=== PATIENT | male | born 1990 | race Caucasian/White ===

== ENCOUNTER 2020-02-01 14:41 | Inpatient (IN) | payer MEDICAID ==
[2020-02-01] VITALS (8 sets, daily range): BP systolic 95–149
[~2020-02-01] VITALS: Ht 182.9 cm; Wt 67.1 kg
--- NOTE | 2020-02-01 14:50 | NUR ---
Patient to ER bed 4 to gown for evaluation. Side rails up. Assumed care
[2020-02-01] MEDS ORDERED: NACL 0.9% 1,000 ML IV ONE (14:52)
[2020-02-01] MEDS ORDERED: INSULIN REGULAR, HUMAN 10 UNITS/0.1 ML INJ IVP ONE (15:00)
--- NOTE | 2020-02-01 15:15 | NUR ---
Patient came to the ER because his family was concerned with his health. The patient has history of depression and developmental delay. Family said that he has been by himself lately and was urinating frequently. Patient fingerstick result was > 600 MD was made aware. Patient is AOx4 and not presenting any signs of acute distress.
--- NOTE | 2020-02-01 15:20 | NUR ---
ER Dr. Dang at bedside examining patient.
[2020-02-01 15:25] LABS: BLOOD, URINE 1+ (NEGATIVE); CLARITY/URINE CLEAR (CLEAR); COLOR,URINE YELLOW (YELLOW); GLUCOSE,URINE 3+ (NEGATIVE); KETONES,URINE 3+ (NEGATIVE); LEUKOCYTE ESTERASE ,URINE NEGATIVE (NEGATIVE); NITRITE, URINE NEGATIVE (NEGATIVE); PROTEIN URINE TRACE (NEGATIVE); UROBILINOGEN,URINE 0.2 (0.2-1.0)
[2020-02-01 15:26] LABS: BASOPHILS % (AUTO) 0.2 % (0.0-2.0); HEMATOCRIT 51.4 % (36-54); HEMOGLOBIN 17.1 g/dL (14.0-18.0); LYMPHOCYTES # (AUTO) 1.6 K/uL (1.0-5.5); LYMPHOCYTES % (AUTO) 8.5 % (20.5-51.5); MEAN CORPUSCULAR HEMOGLOBIN 29 pg (27-31); MEAN CORPUSCULAR HGB CONC 33 % (32-36); MEAN CORPUSCULAR VOLUME 89 fL (79.0-98.0); MONOCYTES # (AUTO) 1.3 K/uL (0.0-1.0); MONOCYTES % (AUTO) 6.9 % (1.7-9.3); NEUTROPHILS # (AUTO) 16.1 K/uL (1.8-7.7); NEUTROPHILS % (AUTO) 84.4 % (40.0-70.0); PLATELET COUNT (AUTO) 400 K/uL (130-430); RED CELL DISTRIBUTION WIDTH 13.1 % (9.0-15.0)
[2020-02-01] MEDS ORDERED: NACL 0.9% 2,000 ML IV ONE (15:30)
[2020-02-01 15:34] LABS: BILIRUBIN,URINE NEGATIVE (NEGATIVE)
[2020-02-01 15:39] LABS: BARBITURATE, URINE NEGATIVE (NEG <=200); BENZODIAZEPINE, URINE NEGATIVE (NEG <=150); CANNABINOID, URINE NEGATIVE (NEG <=50); COCAINE, URINE NEGATIVE (NEG <=150); METHAMPHETAMINES SCREEN,URINE NEGATIVE (NEG <=500); OPIATE, URINE NEGATIVE (NEG <=100); PHENCYCLIDINE SCREEN,URINE NEGATIVE (NEG <=25); UR TRICYCLIC ANTIDEPRESSANTS NEGATIVE (NEG <=300); URINE AMPHETAMINE NEGATIVE (NEG <=500); URINE METHADONE NEGATIVE (NEG <=200); URINE OXYCODONE SCREEN NEGATIVE (NEG <=100); URINE PROPOXYPHENE SCREEN NEGATIVE (NEG <=300)
[2020-02-01 15:39] LABS: INR 1.1 (0.80-1.20)
[2020-02-01 15:40] LABS: BACTERIA,URINE FEW /HPF (None Seen); MUCUS,URINE None Seen /LPF (None Seen); RBC,URINE 0-3 /HPF (0-3); WBC,URINE NONE SEEN /HPF (0-3)
[2020-02-01 15:53] LABS: ANION GAP 31 (5-15); CALCIUM 9.8 mg/dL (8.4-11.0); CHLORIDE 94 mmol/L (98-107); CREATININE 2.26 mg/dL (0.55-1.30); POTASSIUM 4.6 mmol/L (3.5-5.1); SODIUM SERUM 133 mmol/L (136-145); UREA NITROGEN, BLOOD 44 mg/dL (8-21)
[2020-02-01 16:03] LABS: CHOLESTEROL 238 mg/dL (<200); HDL CHOLESTEROL 54 mg/dL (>45); LDL CHOLESTEROL 126 mg/dL (<100); TRIGLYCERIDES 273 mg/dL (30-150)
[2020-02-01 16:04] LABS: ALANINE AMINOTRANSFERASE 17 U/L (12-78); ALBUMIN 4.2 g/dL (3.4-4.8); AMYLASE 174 U/L (0-100); ASPARTATE AMINOTRANSFERASE 13 U/L (10-37); FREE T4 (FREE THYROXINE) 0.9 ng/dl (0.8-1.5); LIPASE 1087 U/L (73-393); THYROID STIMULATING HORMONE 0.97 uIu/mL (0.36-3.74); TOTAL BILIRUBIN 1.2 mg/dL (0.0-1.0)
[2020-02-01 16:09] LABS: GFR AFRICAN AMERICAN 45 mL/min (>90); GLUCOSE 660 mg/dL (70-99)
[2020-02-01 16:14] LABS: ALCOHOL, BLOOD < 3 mg/dL (<10)
[2020-02-01 16:15] LABS: ACETAMINOPHEN < 1 ug/mL (1-30)
[2020-02-01] MEDS ORDERED: cefTRIAXone 1 GM IVPB PREMIX 50 ML IV ONE (16:15)
[2020-02-01] MEDS ORDERED: NACL 0.9% 1,000 ML IV SCH (16:44)
[2020-02-01] MEDS ORDERED: INSULIN REGULAR, HUMAN 100 UNITS in NS 99 ML IV PRN ×4 (16:45→18:34)
[2020-02-01] MEDS ORDERED: DEXTROSE 50% JECT 50 ML DISP.SYRIN IVP PRN ×3 (16:45→18:45)
[2020-02-01 17:04] LABS: PHOSPHORUS 2.9 mg/dL (2.7-4.5)
--- NOTE | 2020-02-01 17:20 | NUR ---
Patient does not have prescribed medication, per patient.
[2020-02-01 17:26] LABS: ACETONE, SERUM MODERATE (NEGATIVE)
--- NOTE | 2020-02-01 17:30 | NUR ---
Patient will be admitted to care of Flora CASTELAN. Admitted to ICU unit. Will go to room 5. Belongings list completed. Complete and up to date summary report printed. SBAR report to be given at bedside with opportunity for questions.
--- NOTE | 2020-02-01 17:32 | NUR ---
CONSULTATION PAGED PRIORITY: ROUTINE REASON FOR CONSULTATION:DKA, ACUTE PANCREATITIS WAS CONSULT CALLED:Y PERSON WHO WAS NOTIFIED:CHANDA HOLLINGSWORTH CONSULTING PHYSICIAN:AIXA PINEDO (CHANDA HOLLINGSWORTH NURSE MIDWIFE/CLINICAL INSTRUCTOR) PRODUCTION TRUCK DRIVER SPECIALTY:NEPHRO PRODUCTION TRUCK DRIVER PHONE NUMBER:[phone]
--- NOTE | 2020-02-01 17:37 | NUR ---
CONSULTATION PAGED PRIORITY: ROUTINE REASON FOR CONSULTATION:DKA, PANCREATITIS WAS CONSULT CALLED:Y PERSON WHO WAS NOTIFIED:NETO CONSULTING PHYSICIAN:TAVO MUELLER CASH MANAGER SPECIALTY:GI CASH MANAGER PHONE NUMBER:[phone]
--- NOTE | 2020-02-01 17:39 | NUR ---
CONSULTATION PAGED PRIORITY: ROUTINE REASON FOR CONSULTATION:DKA, PANCREATITIS WAS CONSULT CALLED:Y PERSON WHO WAS NOTIFIED:TYE MALIK CONSULTING PHYSICIAN:KEMI ANDERS (SACHI STROUD PARALEGAL SECRETARY) RETAIL CUSTOMER SERVICE REPRESENTATIVE SPECIALTY:ENDO RETAIL CUSTOMER SERVICE REPRESENTATIVE PHONE NUMBER:[phone]
--- NOTE | 2020-02-01 17:45 | NUR ---
Received pt from ER to ICU bed 5. Pt alert and ablet o answer questions but slow. ST on monitor rate 104. BP stable. RR 20min sats 100% without oxygen. IV 20g to left AC . NS infusing wide open and bag finished. No skin issues. Pt placed into a gown and oriented to room. Call rodriguez in reach.
--- NOTE | 2020-02-01 17:55 | NUR ---
Dr. Powell called for information and will call back.
--- NOTE | 2020-02-01 18:00 | NUR ---
Accucheck done and reads HI. Lab called for blood sugar.
--- NOTE | 2020-02-01 18:00 | NUR ---
Dr. Esteves called for information and will call back.
--- NOTE | 2020-02-01 18:12 | NUR ---
Lab here to draw lab.
[2020-02-01] MEDS ORDERED: KCL 20 mEq in 0.45% NS 1000 mL 1,000 ML IV SCH (18:45)
--- NOTE | 2020-02-01 18:50 | NUR ---
Spoke with Dr. Esteves on the phone and update given. Orders left.
--- NOTE | 2020-02-01 19:00 | NUR ---
Spoke with Dr. Powell and update given. Orders left.
--- NOTE | 2020-02-01 19:10 | NUR ---
Insulin drip mixed and witnessed with Kasi CASTELAN and started at 10unit/hr on the pump witnessed by Kasi CASTELAN. NS infusing at 150cc/hr.
[2020-02-01] MEDS ORDERED: KCL 20 mEq in 0.45% NS 1000 mL 1,000 ML IV ONE (19:15)
--- NOTE | 2020-02-01 19:20 | NUR ---
Report given to sara CASTELAN to assume care of the pt. Glucose on blood draw 446. Dr. Esteves said she would call later tonight for the results as well as for the lab results. Addendum: 02/05/20 at 0739 by Noemi Stephenson RN Addendum; Reported to sara CASTELAN that admission assessment data was not complete and that the admission data needed to be done as well as influenza screening. Pt is unable to give information and I called his parents and there was no answer. His parents did not call into the ICU so I coould get any information either. Admission physical assessment was completed.
--- NOTE | 2020-02-01 19:30 | NUR ---
Opening Note Patient received via SBAR with normal vitals, elevated blood sugar, on an in insulin drip and fluids, supine in bed, with HOB in upright position, lowered down to the floor in the locked position, with the call light within reach. Will continue to monitor.
--- NOTE | 2020-02-01 19:40 | NUR ---
Admission List and Property Patient's family is not able to enter the hospital due to the Coronavirus quarantine, and patient was admitted in the previous shift. Unable to fill out admission forms without family present. Will attempt to follow up with day shift.
[2020-02-01 19:51] LABS: CALCIUM 8.8 mg/dL (8.4-11.0); CREATININE 1.77 mg/dL (0.55-1.30)
[2020-02-01 20:09] LABS: POTASSIUM 5.8 mmol/L (3.5-5.1)
[2020-02-01] MEDS: PANTOPRAZOLE SODIUM 40 MG/VIAL (PROTONIX) IVP SCH (21:53)
[2020-02-01] MEDS ORDERED: KCL 20 mEq in D5/0.45NS 1000mL 1,000 ML IV SCH (22:00)
[2020-02-01] MEDS ORDERED: KCL 20 mEq in D5/0.45NS 1000mL 1,000 ML IV ONE (22:17)
--- NOTE | 2020-02-01 22:26 | NUR ---
INSULIN DRIP I witnessed Bill decrease insulin drip to 6 units/HR.
--- NOTE | 2020-02-01 23:31 | NUR ---
PAGED DR. CARLSON (SPEEDBOAT DRIVER FOR DR. BROWN) FOR CRITICAL LAB VALUES DIALED: [phone] ( WAS REDIRECTED FROM DR. BROWN'S EXCHANGE) SPOKE TO: FAY
[2020-02-02] VITALS (19 sets, daily range): BP systolic 95–157
[2020-02-02] MEDS: D5/0.45 NS 1,000 ML IV SCH ×2 (00:02→05:56)
[2020-02-02 00:11] LABS: CALCIUM 8.7 mg/dL (8.4-11.0); CREATININE 1.43 mg/dL (0.55-1.30); POTASSIUM 3.6 mmol/L (3.5-5.1)
[2020-02-02 03:25] LABS: BASOPHILS % (AUTO) 0.3 % (0.0-2.0); EOSINOPHILS % (AUTO) 0.1 % (0.0-4.0); HEMATOCRIT 43.9 % (36-54); HEMOGLOBIN 14.9 g/dL (14.0-18.0); LYMPHOCYTES # (AUTO) 1.8 K/uL (1.0-5.5); LYMPHOCYTES % (AUTO) 12.3 % (20.5-51.5); MEAN CORPUSCULAR HEMOGLOBIN 29 pg (27-31); MEAN CORPUSCULAR HGB CONC 34 % (32-36); MEAN CORPUSCULAR VOLUME 85 fL (79.0-98.0); MONOCYTES # (AUTO) 1.6 K/uL (0.0-1.0); MONOCYTES % (AUTO) 10.6 % (1.7-9.3); NEUTROPHILS # (AUTO) 11.5 K/uL (1.8-7.7); NEUTROPHILS % (AUTO) 76.7 % (40.0-70.0); PLATELET COUNT (AUTO) 291 K/uL (130-430); RED BLOOD CELL COUNT(AUTO) 5.14 MIL/uL (4.2-6.2); RED CELL DISTRIBUTION WIDTH 12.9 % (9.0-15.0)
[2020-02-02 03:50] LABS: ALBUMIN 3.4 g/dL (3.4-4.8); CREATININE 1.38 mg/dL (0.55-1.30)
[2020-02-02] MEDS: KCL 20 mEq in 100 mL (PREMIX) 100 ML IV SCH ×2 (05:06→06:00)
--- NOTE | 2020-02-02 07:00 | NUR ---
Nutrition Update Alo Scale 16 noted. Pt admitted for DKA, Pancreatitis Diet: Clear liquid BMI: 20.3 kg/m2 RD to follow per nutrition care standards.
--- NOTE | 2020-02-02 07:37 | NUR ---
Closing Note Patient reviewed with incoming day shift RN via SBAR. Vitals are within normal limits. No signs of distress or pain. Patient is supine in bed, with the HOB in upright position, with the call light within reach, bed in lowest setting and locked.
[2020-02-02 07:42] LABS: CALCIUM 9.3 mg/dL (8.4-11.0); CREATININE 1.36 mg/dL (0.55-1.30); POTASSIUM 3.5 mmol/L (3.5-5.1)
[2020-02-02] MEDS: PANTOPRAZOLE SODIUM 40 MG/VIAL (PROTONIX) IVP SCH ×2 (09:25→21:41)
[2020-02-02] MEDS: cefTRIAXone 1 GM in D5W 50 ML IV SCH (09:25)
[2020-02-02] MEDS ORDERED: INSULIN GLARGINE 100 UNITS/ML 10 ML VIAL SUBCUT ONE (09:30)
[2020-02-02] MEDS ORDERED: KCL 20 mEq in D5/0.45NS 1000mL 1,000 ML IV SCH ×2 (09:30→19:00)
--- NOTE | 2020-02-02 09:50 | NUR ---
IN AM RECEIVED THIS PT A/OX4, PT WAS ON INSULIN DRIP. SB 87 @7AM. INSULINE DRIP WAS STOPPED AND WAS CALLED. PT WAS ORDERED TO STOP INSULINE DRIP AND CHANGED TO LATUS 20UNITS STAT NOW, AQ CHECK4 AND COVER WITH REGULAR INSULIN IN LOW DOSE. PT WAS PUT ON NPO IN AM FOR US OF ABO WHICH WAS DONE @0900. PT'S VS STABLE. DENIES PAIN AND DIZZINESS.
[2020-02-02] MEDS ORDERED: DEXTROSE 50% JECT 50 ML DISP.SYRIN IVP PRN ×2 (10:45→11:15)
--- NOTE | 2020-02-02 10:46 | NUR ---
SS NOTES: DECK MOLDER was referred by CM to see patient for DCP/ICU. Demographic information verified (NOK, PTN: Zuleyka Agosto, mom, unknown phone#). DECK MOLDER met with patient at bedside, stated reason for visit. Pt is alert and oriented x4, and cooperative during the encounter. Pt appeared to be disheveled, with depressed mood, soft speech, average eye contact and flat affect. Pt is a 29 y/o single male who came in via ED for nausea and vomiting. Pt lives at home with parents and is independent with all ADL's. Pt is currently and unemployed and does not have any means of income. Pt denies any history of substance abuse/use and denies any history of mental health. Pt states he does not have a PCP and has not seen one "in a while". Pt appears to not really know his diagnosis, but stated the doctors and nurses are transparent with him in terms of his care and the reason of his admission. No further SS needs identified at this time, but SS will remain available for support. DECK MOLDER provided patient with community clinic list and his [employer] printout which has his PCP group and phone number listed.
[2020-02-02 11:28] LABS: CALCIUM 8.9 mg/dL (8.4-11.0); CREATININE 1.44 mg/dL (0.55-1.30); POTASSIUM 3.6 mmol/L (3.5-5.1)
[2020-02-02] MEDS ORDERED: INSULIN LISPRO SLIDING SCALE 100 UNITS/ML VIAL (humaLOG) SUBCUT PRN (11:30)
[2020-02-02] MEDS: INSULIN LISPRO SLIDING SCALE 100 UNITS/ML VIAL (humaLOG) SUBCUT PRN ×3 (11:48→21:53)
--- NOTE | 2020-02-02 12:00 | NUR ---
Dietitian Recommendations *Continue clear liquid diet per MD. *Advance diet when medically appropriate. ([facility] diet) Please see Nutritional Assessment for details. STEVIE, RODERICK
--- NOTE | 2020-02-02 13:00 | NUR ---
LUNCH WAS DELIVERED TO PT. PT ATE 50%. BUT PT TOOK MORE JUICE TO DRINK.
--- NOTE | 2020-02-02 17:10 | NUR ---
PT WS DOWNGRADED TO M/S. PT ABLE TO AMBULATE ON FLOOR IN STEADY GAIT. PT GOT ROOM 120A. REPORT WAS CALLED TO FLOOR RN. PT WAS SENT TO FLOOR IN W/C IN STABLE CONDITION.
--- NOTE | 2020-02-02 17:20 | NUR ---
continuation of care Patient is awake and alert sitting up in bed, educated special population paraprofessional light for assistance. call light is with patient. Report was endorsed by ICU nurse. Patient shows no signs of any distress, breathing is equal and on labored. Patient has no complaints at this time. will continue to monitor.
--- NOTE | 2020-02-02 17:49 | NUR ---
ACCU CHECK Patient is awake and alert sitting up in bed. patients Accu check done, coverage given per order. paging Dr. Rivera for elevated blood sugar. Patient used urinal. educated wellness consultant light for assistance. call light is with patient. patient has no other needs at this time. close to nurses station.
--- NOTE | 2020-02-02 17:55 | NUR ---
Dr. Rivera spoke with made aware of elevated BS, orders were received.
[2020-02-02] MEDS: POTASSIUM CHLORIDE 20 MEQ in 0.45% NACL 1,000 ML IV SCH (19:08)
--- NOTE | 2020-02-02 19:12 | NUR ---
rn closing note Patient is awake and alert no signs of any distress. Patient has all safety precautions in place. Patient has call light with him educated to use for assistance. no other needs at this time.
--- NOTE | 2020-02-02 19:50 | NUR ---
OPENING NOTES Patient resting in bed, awake, breathing evenly and nonlabored on room air. Patient has an IV on the left AC 22g, patent and benign, IVF running, patient tolerating it well. Educated patient on fall/safety precautions, call light system, patient stated understanding. Bed is locked, armed and at lowest position, will continue to monitor.
--- NOTE | 2020-02-02 21:53 | NUR ---
due medications given, BS checked, coverage needed, patient tolerated it well, fall/safety precautions.
--- NOTE | 2020-02-03 01:00 | NUR ---
RESTING PT RESTING IN BED. BREATHING EVEN AND UNLABORED TO ROOM AIR. NO S/S OF ACUTE DISTRESS. IVF INFUSING ORDERED RATE. SAFETY AND FALL PRECAUTION IN PLACED. WILL MONITOR. Addendum: 02/04/20 at 0343 by Maddy Mendiola RN PLEASE DISREGARD WRONG DATE.
[2020-02-03 01:11] VITALS: BP_SYST 137
[2020-02-03] MEDS: POTASSIUM CHLORIDE 20 MEQ in 0.45% NACL 1,000 ML IV SCH ×2 (04:34→15:33)
--- NOTE | 2020-02-03 04:34 | NUR ---
IVF replaced, patient is tolerating it well. No s/s of distress at this time, no other needs at this time, fall/safety precautions.
[2020-02-03] MEDS: INSULIN Lispro 100 UNITS/ML VIAL (humaLOG) SUBCUT SCH ×3 (06:33→17:00)
--- NOTE | 2020-02-03 06:33 | NUR ---
CLOSING NOTES Patient resting in bed, awake, breathing evenly and nonlabored on room air. IVF running, patient tolerating it well. BS checked, coverage needed. Patient denies any pain. No s/s of distress at this time, no other needs at this time. Needs met throughout the shift, will endorse care to morning shift RN.
[2020-02-03] MEDS: INSULIN LISPRO SLIDING SCALE 100 UNITS/ML VIAL (humaLOG) SUBCUT PRN ×4 (06:34→21:11)
[2020-02-03 06:47] LABS: BASOPHILS % (AUTO) 0.3 % (0.0-2.0); EOSINOPHILS # (AUTO) 0.1 K/uL (0.0-0.4); EOSINOPHILS % (AUTO) 0.8 % (0.0-4.0); HEMATOCRIT 39.6 % (36-54); HEMOGLOBIN 13.6 g/dL (14.0-18.0); LYMPHOCYTES # (AUTO) 2.1 K/uL (1.0-5.5); LYMPHOCYTES % (AUTO) 24.9 % (20.5-51.5); MEAN CORPUSCULAR HEMOGLOBIN 30 pg (27-31); MEAN CORPUSCULAR HGB CONC 34 % (32-36); MEAN CORPUSCULAR VOLUME 86 fL (79.0-98.0); MONOCYTES # (AUTO) 0.7 K/uL (0.0-1.0); MONOCYTES % (AUTO) 8.3 % (1.7-9.3); NEUTROPHILS # (AUTO) 5.6 K/uL (1.8-7.7); NEUTROPHILS % (AUTO) 65.7 % (40.0-70.0); PLATELET COUNT (AUTO) 200 K/uL (130-430); RED CELL DISTRIBUTION WIDTH 12.9 % (9.0-15.0); WHITE BLOOD COUNT (AUTO) 8.6 K/uL (4.8-10.8)
--- NOTE | 2020-02-03 07:10 | NUR ---
opening note received bedside SBAR from night RN, patient in bed, respirations even, non labored, bed in low and locked position, call light within reach
[2020-02-03 08:00] VITALS: BP_SYST 127
[2020-02-03] MEDS: PANTOPRAZOLE SODIUM 40 MG/VIAL (PROTONIX) IVP SCH ×2 (08:35→21:11)
[2020-02-03] MEDS: cefTRIAXone 1 GM in D5W 50 ML IV SCH (08:40)
[2020-02-03 08:47] LABS: ALBUMIN 3.1 g/dL (3.4-4.8); BILIRUBIN,DIRECT 0.3 mg/dL (0.0-0.3); TOTAL BILIRUBIN 1.8 mg/dL (0.0-1.0)
[2020-02-03] MEDS ORDERED: INSULIN GLARGINE 100 UNITS/ML 10 ML VIAL SUBCUT SCH ×2 (09:00)
--- NOTE | 2020-02-03 09:30 | NUR ---
nurse note Patient in bed, alert, bed in low and locked position, call light within reach
--- NOTE | 2020-02-03 11:40 | NUR ---
blood sugar blood sugar 508, initiated protocol, patient alert, oriented, respirations even non labored, spoke with Dr. Rivera, regarding blood sugar, new orders given.
[2020-02-03 12:25] VITALS: BP_SYST 131
[2020-02-03] MEDS ORDERED: INSULIN GLARGINE 100 UNITS/ML 10 ML VIAL SUBCUT ONE (12:30)
[2020-02-03] MEDS ORDERED: INSULIN Lispro 100 UNITS/ML VIAL (humaLOG) SUBCUT ONE (12:30)
--- NOTE | 2020-02-03 13:00 | NUR ---
nurse note patient in bed, eyes closed, respirations even, non labored, bed in low and locked position, bed alarm on, call light within reach
--- NOTE | 2020-02-03 15:00 | NUR ---
physician rounds Dr. Lugo bedside examining patient
[2020-02-03 16:34] VITALS: BP_SYST 125
--- NOTE | 2020-02-03 19:10 | NUR ---
CLOSING NOTE BEDSIDE SBAR GIVEN TO NIGHT RN, PATIENT IN BED EYES CLOSED, RESPIRATIONS EVEN, NON LABORED, BED IN LOW AND LOCKED POSITION, CALL LIGHT WITHIN REACH, ENDORSED CARE TO NIGHT RN
--- NOTE | 2020-02-03 19:30 | NUR ---
OPENING NOTES Received care of patient and SBAR report. Patient resting in bed, awake, breathing evenly and nonlabored on room air. Patient has an IV on the left AC 22g, patent and benign, IVF running, patient tolerating it well. Educated patient on fall/safety precautions, call light system, patient verbalized understanding. Bed is locked, alarmed and at the lowest position. Will continue to monitor throughout shift.
[2020-02-03 20:00] VITALS: BP_SYST 133
--- NOTE | 2020-02-03 21:11 | NUR ---
ACCU-CHECK BLOOD SUGAR OF 236. 4 UNITS OF HUMALOG INSULIN ADMINISTERED PER SLIDING SCALE.
--- NOTE | 2020-02-03 23:05 | NUR ---
AMBULATED TO RESTROOM WITH NURSE ASSIST. PT NOTED TO HAVE STEADY GAIT AT THIS TIME. PT RETURNED TO BED SAFELY. PT TOLERATED ACTIVITY WELL. SAFETY PRECAUTIONS ARE IN PLACED. CALL LIGHT WITHIN REACH. WILL MONITOR.
[2020-02-04 00:35] VITALS: BP_SYST 127
--- NOTE | 2020-02-04 01:00 | NUR ---
RESTING PT RESTING IN BED. BREATHING EVEN AND UNLABORED TO ROOM AIR. NO S/S OF ACUTE DISTRESS. IVF INFUSING ORDERED RATE. SAFETY AND FALL PRECAUTION IN PLACED. WILL MONITOR.
--- NOTE | 2020-02-04 03:44 | NUR ---
SLEEPING PT RESTING IN BED. BREATHING EVEN AND UNLABORED TO ROOM AIR. NO S/S OF ACUTE DISTRESS. IVF INFUSING ORDERED RATE. SAFETY AND FALL PRECAUTION IN PLACED. WILL MONITOR.
[2020-02-04] MEDS: INSULIN Lispro 100 UNITS/ML VIAL (humaLOG) SUBCUT SCH ×3 (06:13→16:42)
--- NOTE | 2020-02-04 06:13 | NUR ---
ACCUCHECK BLOOD SUGAR OF 121, NO INSULIN COVERAGE INDICATED PER SLIDING SCALE. 5 UNITS OF SCHEDULED HUMALOG ADMINISTERED ORDERED. SAFETY MAINTAINED. WILL MONITOR.
[2020-02-04] MEDS: POTASSIUM CHLORIDE 20 MEQ in 0.45% NACL 1,000 ML IV SCH (06:14)
[2020-02-04 06:29] LABS: CALCIUM 8.8 mg/dL (8.4-11.0); CREATININE 0.81 mg/dL (0.55-1.30)
--- NOTE | 2020-02-04 06:45 | NUR ---
CLOSING NOTE PATIENT IN BED RESTING. EYES ARE CLOSED, RESPIRATIONS EVEN AND NON LABORED. IVF INFUSING ORDERED. NO S/S OF ACUTE DISTRESS. SAFETY PRECAUTIONS MAINTAINED THROUGHOUT SHIFT. BED IN LOW AND LOCKED POSITION, CALL LIGHT WITHIN REACH. WILL ENDORSE TO DAY SHIFT RN.
[2020-02-04 07:49] VITALS: BP_SYST 133
--- NOTE | 2020-02-04 08:00 | NUR ---
Note Pt sitting up in bed to eat his breakfast. No SOB/resp distress or pain/discomfort noted at this time. Pt's left AC IV intact and patent infusing IVF's well. No needs noted at this time. Call light within reach.
[2020-02-04 08:42] LABS: POTASSIUM 2.7 mmol/L (3.5-5.1)
[2020-02-04] MEDS ORDERED: INSULIN GLARGINE 100 UNITS/ML 10 ML VIAL SUBCUT SCH (09:00)
[2020-02-04] MEDS: cefTRIAXone 1 GM in D5W 50 ML IV SCH (09:27)
[2020-02-04] MEDS: PANTOPRAZOLE SODIUM 40 MG/VIAL (PROTONIX) IVP SCH ×2 (09:27→20:20)
[2020-02-04] MEDS ORDERED: POTASSIUM CHLORIDE 20 MEQ TAB.PRT.SR PO ONE (10:15)
--- NOTE | 2020-02-04 10:30 | NUR ---
Note Pt's K=2.7, Dr Kumar was called at 0850am. Dr Kumar called back at 1010am and orders were received. Orders were carried out at this time. Pt denies any needs at this time. Call light within reach.
[2020-02-04] MEDS: INSULIN LISPRO SLIDING SCALE 100 UNITS/ML VIAL (humaLOG) SUBCUT PRN ×3 (11:59→20:23)
--- NOTE | 2020-02-04 12:40 | NUR ---
Nutrition F/U RD reviewed pt's current EMR including diet Hx, physician notes, nursing notes, pertinent labs/meds/procedures, care trends and care activity. Admit Dx: DKA, Pancreatitis Current Diet Order: CCHO diet x 1day Subjective information: Pt seen walking the hallway w/ physical therapist. No family at bedside. Pt reported of excellent appetite. Pt w/ developmental delay/mild mental challenge per EMR. US Abd: unremarkable. BG lab values noted. RD handed printed out materials for MNT for family members in Venezuelan and Italian and left it w/ RN. Alo scale: 21, No pressure injury/skin issues noted. Labs: 02/03 Na 138 WNL, K 2.7L, BG 118H, POC BG 389H, BUN 15 WNL, CRE 0.81WNL Current PO intake: Good 88% average of 2 meals recorded. Estimated Energy Expenditure (kcals/day) 5808-5118 kcal/day (30-35 kcal/kg CBW for maintenance) Estimated Protein Required (g/day) 68gm/day (1gm/kg CBW for ION/elevated Renal labs) Estimated Fluid Required (l/day) 2L/day (30ml/kg CBW for maintenance) Problem/Etiology/Signs/Symptoms Altered nutrition-related labs r/t renal dysfunction AEB elevated BUN and CRE lab values. (*improved) Inadequate energy intake r/t diet interruptions AEB NPO since admission and negligible PO intake w/ therapeutic diet d/t procedure. (*no longer applicable) Altered nutrition-related labs r/t endocrine dysfunction AEB elevated BG and POC BG lab values. (*new 02/04/2020) Expected Outcomes/Goals Monitor appetite and PO intake w/ goal of pt meeting at least 75% of estimated nutritional needs, labs trending WNL, normal GI function, skin integrity/wt maintenance. Dietitian Recommendations *Continue [facility] diet. Follow Up High Risk: F/U in 2-3days
[2020-02-04 12:41] VITALS: BP_SYST 150
--- NOTE | 2020-02-04 12:48 | NUR ---
Dietitian Recommendations *Continue [facility] diet. Please see Nutrition F/U note for details. STEVIE, RODERICK
--- NOTE | 2020-02-04 14:00 | NUR ---
Note Pt sat up in bed and ate his lunch. No needs noted at this time. Call light within reach.
[2020-02-04 16:20] VITALS: BP_SYST 141
--- NOTE | 2020-02-04 17:50 | NUR ---
Note Pt sitting up in bed eating his dinner. IV in left AC intact and patent. No SOB/resp distress or pain/discomfort noted at this time. Pt states he feels "well, better than yesterday". No needs noted at this time. Call light within reach.
--- NOTE | 2020-02-04 18:50 | NUR ---
Note Pt was checked on q1' and PRN all shift for needs and care. Call light within reach. Bed in low position all shift. Pt maintained with safety precautions all shift. Pt next to nurses station for close observation for needs and care.
--- NOTE | 2020-02-04 19:10 | NUR ---
OPENING NOTES. PATIENT AWAKE, RESTING IN BED NO SIGNS OF RESPIRATORY DISTRESS NOTED. DENIES PAIN AND DISCOMFORT AT THIS TIME. IV SITE, PATENCY NOTED. CALL LIGHT WITHIN REACH. PATIENT WAS EDUCATED TO USE CALL LIGHT WHEN ASSISTANCE IS NEEDED. PATIENT VERBALIZED UNDERSTANDING. BED LOCKED AND IN LOWEST POSITION. BED ALARM ON. SAFETY PRECAUTIONS IN PLACE. WILL CONTINUE TO MONITOR PATIENT.
[2020-02-04] MEDS ORDERED: POTASSIUM CHLORIDE 20 MEQ/PKT PACKET PO ONE (19:30)
[2020-02-04 20:00] VITALS: BP_SYST 127
--- NOTE | 2020-02-04 20:20 | NUR ---
MED PASS DUE MEDICATION GIVEN AT THIS TIME. PATIENT WAS EDUCATED ON MEDICATION THAT WAS TAKEN, PATIENT VERBALIZED UNDERSTANDING. CALL LIGHT WITHIN REACH. SAFETY PRECAUTIONS IN PLACE. WILL CONTINUE TO MONITOR PATIENT.
[2020-02-04] MEDS ORDERED: POTASSIUM CHLORIDE 20 MEQ TAB.PRT.SR PO SCH (21:00)
--- NOTE | 2020-02-04 23:30 | NUR ---
RN ROUNDS PATIENT ASLEEP AT THIS TIME. NO SIGNS OF RESPIRATORY DISTRESS AND DISCOMFORT NOTED. BREATHING EVEN AND UNLABORED. CALL LIGHT WITH IN REACH. SAFETY PRECAUTIONS IN PLACE. WILL CONTINUE TO MONITOR PATIENT.
[2020-02-05 00:18] VITALS: BP_SYST 124
[2020-02-05] MEDS: INSULIN Lispro 100 UNITS/ML VIAL (humaLOG) SUBCUT SCH ×3 (06:06→17:36)
[2020-02-05 06:31] LABS: CALCIUM 9.1 mg/dL (8.4-11.0); CREATININE 0.77 mg/dL (0.55-1.30); POTASSIUM 3.6 mmol/L (3.5-5.1)
--- NOTE | 2020-02-05 06:34 | NUR ---
CLOSING NOTES/BS 207 PATIENT ASLEEP AT THIS TIME. NO SIGNS OF RESPIRATORY DISTRESS AND DISCOMFORT NOTED. BREATHING EVEN AND UNLABORED. IV SITE, PATENCY NOTED. BS CHECKED,AI=524, COVERAGE GIVEN ORDERED. CALL LIGHT WITHIN REACH. BED LOCKED AND IN LOWEST POSITION. BED ALARM ON. ALL NEEDS MET THROUGHOUT THE SHIFT. WILL CONTINUE TO MONITOR UNTIL ENDORSE TO ONCOMING SHIFT NURSE FOR CONTINUITY OF CARE.
[2020-02-05 08:23] VITALS: BP_SYST 133
[2020-02-05] MEDS: INSULIN GLARGINE 100 UNITS/ML 10 ML VIAL SUBCUT SCH ×2 (09:00→09:18)
--- NOTE | 2020-02-05 09:00 | NUR ---
pt refused to eat breakfast, stated he does not want to have abdominal pain.
[2020-02-05] MEDS: cefTRIAXone 1 GM in D5W 50 ML IV SCH (09:01)
[2020-02-05] MEDS: PANTOPRAZOLE SODIUM 40 MG/VIAL (PROTONIX) IVP SCH ×2 (09:02→20:13)
[2020-02-05] MEDS ORDERED: INSULIN GLARGINE 100 UNITS/ML 10 ML VIAL SUBCUT ONE (09:30)
[2020-02-05 10:26] LABS: HEMOGLOBIN A1C 9.4 % (4.8-5.6)
[2020-02-05 12:31] VITALS: BP_SYST 131
--- NOTE | 2020-02-05 16:09 | NUR ---
pt resting at this time. no s/s of pain.
[2020-02-05 16:45] VITALS: BP_SYST 138
--- NOTE | 2020-02-05 18:27 | NUR ---
SPOKE WITH PT'S FATHER RE PT STATUS.
--- NOTE | 2020-02-05 18:56 | NUR ---
PT'S FAMILY DIABETIC TEACHING, INSULING INJECTION AND BLOOD SUGAR CHECK. SPOKE WITH PT'S BROTHER , DELPHINE TEL NO [phone]. TOLD HIM ABT DR DUTTON;S ORDER. HE SAID HE WILL CALL THE NURSE IN AM TO GIVE SCHEDULE WHEN THEY CAN COME FOR THE TEACHING, THEY ARE HOPING THAT THEY CAN COME FOR THE TEACHING AND PAGEANT DIRECTOR PT FOR DC.
--- NOTE | 2020-02-05 19:10 | NUR ---
OPENING NOTES PATIENT AWAKE, RESTING IN BED AND WATCHING TV. NO SIGNS OF RESPIRATORY DISTRESS NOTED. DENIES PAIN AND DISCOMFORT AT THIS TIME. IV SITE, PATENCY NOTED. CALL LIGHT WITHIN REACH. PATIENT WAS EDUCATED TO USE CALL LIGHT WHEN ASSISTANCE IS NEEDED. PATIENT VERBALIZED UNDERSTANDING. BED LOCKED AND IN LOWEST POSITION. BED ALARM ON. SAFETY PRECAUTIONS IN PLACE. WILL CONTINUE TO MONITOR PATIENT.
--- NOTE | 2020-02-05 19:47 | NUR ---
ENDORSED TO NIGHT RN VALERIA: PT ON STABLE CONDITION, ANNELISE SHAW MADE AWARE OF THE ORDER FOR FAMILY TEACHING ON INSULIN INJECTION AND BLOOD SUGAR CHECKS IN AM. FAMILY WILL CALL MORNING NURSE FOR SCHEDULE.
[2020-02-05 20:00] VITALS: BP_SYST 118
--- NOTE | 2020-02-05 20:13 | NUR ---
MED PASS/BS 140 DUE MEDICATION GIVEN AT THIS TIME. PATIENT WAS EDUCATED ON MEDICATION THAT WAS TAKEN, PATIENT VERBALIZED UNDERSTANDING. JS=500, NO COVERAGE NEEDED AT THIS TIME. CALL LIGHT WITHIN REACH. SAFETY PRECAUTIONS IN PLACE. WILL CONTINUE TO MONITOR PATIENT.
--- NOTE | 2020-02-05 22:45 | NUR ---
RN ROUNDS PATIENT AWAKE AND RESTING IN BED AT THIS TIME. NO SIGNS OF RESPIRATORY DISTRESS AND DISCOMFORT NOTED. BREATHING EVEN AND UNLABORED. CALL LIGHT WITH IN REACH. SAFETY PRECAUTIONS IN PLACE. WILL CONTINUE TO MONITOR PATIENT.
[2020-02-06 00:44] VITALS: BP_SYST 124
[2020-02-06] MEDS: INSULIN Lispro 100 UNITS/ML VIAL (humaLOG) SUBCUT SCH ×3 (06:05→16:32)
--- NOTE | 2020-02-06 06:19 | NUR ---
CLOSING NOTES /BS 132 PATIENT AWAKE. NO SIGNS OF RESPIRATORY DISTRESS AND DISCOMFORT NOTED. BREATHING EVEN AND UNLABORED. IV SITE, PATENCY NOTED. BS CHECKED=BS 132. MD ORDERED SCHEDULED 5UNITS OF HUMALOG. PATIENT WAS EDUCATED ON PURPOSE, SIDE EFFECT AND BENEFITS OF INSULIN, PATIENT VERBALIZED UNDERSTANDING. CALL LIGHT WITHIN REACH. BED LOCKED AND IN LOWEST POSITION. BED ALARM ON. ALL NEEDS MET THROUGHOUT THE SHIFT. WILL CONTINUE TO MONITOR UNTIL ENDORSE TO ONCOMING SHIFT NURSE FOR CONTINUITY OF CARE.
[2020-02-06] MEDS ORDERED: INSULIN GLARGINE 100 UNITS/ML 10 ML VIAL SUBCUT SCH (09:00)
[2020-02-06] MEDS: INSULIN GLARGINE 100 UNITS/ML 10 ML VIAL SUBCUT SCH (10:51)
[2020-02-06] MEDS: INSULIN LISPRO SLIDING SCALE 100 UNITS/ML VIAL (humaLOG) SUBCUT PRN ×2 (10:54→16:33)
--- NOTE | 2020-02-06 11:00 | NUR ---
FATHER OF PATIENT TEACHING ON BLOOD GLUCOSE CHECK BEFORE MEALS AND SLIDING SCALE HUMALOG BEFORE MEAL WELL STANDING ORDERS FOR HUMALOG 5 UNITS PRIOR TO MEAL. TAUGHT FATHER TO RECORD BLOOD GLUCOSE READING, TIME AND DATE OF TEST. TEACHING ON STANDING 28 UNITS OF LANTUS WITH BREAKFAST, DAILY, ONCE. TEACHING TO CALL 911 GO TO ER FOR BLOOD GLUCOSE LESS THAN 70 MG/DL GREATER THAN 400 MG/DL AND IF CONSCIOUS TAKE ORANGE JUICE WITH SUGAR FOR LOW BLOOD GLUCOSE <70 MG/DL. FATHER OF PATIENT GIVEN WRITTEN INSTRUCTIONS. WILL ASK ATTENDING MD AND TEASEL GIG OPERATOR TO PRESCRIBE INSULIN AND DIABETIC SUPPLIES FOR PATIENT. IF NOT ABLE TO OBTAIN HAVE DIRECTED FATHER OF PATIENT TO CALL INSURANCE FOR MEDICAL/DIABETIC CLINIC/PRIMARY MD TO ASSIST WITH PRESCRIPTIONS FOR THE ABOVE. FATHER VERBALIZES UNDERSTANDING BUT WANTS TO BRING SPOUSE FOR FURTHER TEACHING OLGA Painter RN
[2020-02-06] MEDS: PANTOPRAZOLE SODIUM 40 MG/VIAL (PROTONIX) IVP SCH ×2 (11:11→20:25)
[2020-02-06] MEDS: cefTRIAXone 1 GM in D5W 50 ML IV SCH (11:13)
[2020-02-06 12:11] VITALS: BP_SYST 135
[2020-02-06 16:43] VITALS: BP_SYST 121
--- NOTE | 2020-02-06 18:46 | NUR ---
Handoff to night team registered nurse. Tohmas Painter RN
[2020-02-06 19:00] VITALS: BP_SYST 127
--- NOTE | 2020-02-06 19:15 | NUR ---
change of shift.pt.presents quiescent affect;calm,resting.pt.presents iv access intact;patent iv lock.no c/o pain, nausea. general status stable.respiratory status stable;unlabored@room air.pt.capable of reposition self/ambulate.call light/ telephone w/in reach of the pt.
[2020-02-06 20:00] VITALS: BP_SYST 127
--- NOTE | 2020-02-06 20:00 | NUR ---
pt.assessed.v/s assessed values w/in normal limits no c/o pain,nausea.i have apprised the pt.that snacks/beverages are available w/in the shift.no requests posited@this hour.pt.presents iv access intact;patent iv lock.general status stable.respiratory status stable;unlabored. pt.capable to reposition self.call light/telephone w/in reach of the pt.
--- NOTE | 2020-02-06 20:30 | NUR ---
i have assessed the blood glucose;value;134mg/dl.i have apprised the pt.of the value. Addendum: 02/07/20 at 0124 by Jeffery Ferreira RN i have reviewed additional information re;diabetic mgx;the necessity to assess the blood glucose x4 /24hrs.dietary guidelines. meals consumptions;dr's recommend q-3hrs snack portions w/in 24hrs.answered pt's inquiries.
--- NOTE | 2020-02-06 21:00 | NUR ---
2100pmedication administered.protonix ivp via peripheral iv access.no requests posited@this hour.
--- NOTE | 2020-02-06 22:00 | NUR ---
pt assessed.pt.presents quiescent affect;calm,resting no c/o pain,nausea.no requests posited@this hour.general status stable.respiratory status stable;unlabored.pt.capable to reposition self.call light/telephone w/in reach of the pt.
--- NOTE | 2020-02-07 | NUR ---
pt.assessed.v/s assessed;values w/in normal limits.no c/o pain,nausea.no requests posited@this hour. general status stable.respiratory status stable;unlabored.pt.capable to reposition self.call light/telephone w/in reach of the pt.
[2020-02-07 00:52] VITALS: BP_SYST 116
--- NOTE | 2020-02-07 02:00 | NUR ---
pt.assessed.pt.presents quiescent affect;calm,somnolent.general status stable.respiratory status stable;unlabored. pt.capable to reposition self.call light/telephone w/in reach of the pt.
--- NOTE | 2020-02-07 04:00 | NUR ---
pt.assessed.pt.presents quiescent affect;calm,somnolent.general status stable.respiratory status stable;unlabored. pt.capable to reposition self.call light/telephone w/in reach of the pt.
[2020-02-07] MEDS: INSULIN Lispro 100 UNITS/ML VIAL (humaLOG) SUBCUT SCH ×2 (05:29→12:31)
--- NOTE | 2020-02-07 06:32 | NUR ---
pt.assessed.pt.presents quiescent affect;calm,resting.i have assessed the blood glucose;value:120mg/dl.i have administered insulin;humalog;5-UNITS.0700a do se.i have reviewed additional education;instruction re;diabetic control/mgx.insulin sliding scale v.scheduled insulin dose. to assess the blood;glucose p/t any administration of insulin.i have attended to the inquires of the pt.re;diabetic mgx;control. no c/o pain,nausea.no requests posited@ this hour.pt.capable to reposition self.call light/telephone w/in reach of the pt.
[2020-02-07] MEDS: INSULIN GLARGINE 100 UNITS/ML 10 ML VIAL SUBCUT SCH (09:03)
[2020-02-07] MEDS: PANTOPRAZOLE SODIUM 40 MG/VIAL (PROTONIX) IVP SCH (09:04)
[2020-02-07] MEDS: cefTRIAXone 1 GM in D5W 50 ML IV SCH (09:06)
[2020-02-07] MEDS: INSULIN LISPRO SLIDING SCALE 100 UNITS/ML VIAL (humaLOG) SUBCUT PRN (12:32)
[2020-02-07 12:40] VITALS: BP_SYST 115
[2020-02-07] MEDS ORDERED: INSU100V9 SQ (13:26)
[2020-02-07] MEDS ORDERED: INSU100V SQ (13:27)
[2020-02-07 14:04] VITALS: BP_SYST 112
--- NOTE | 2020-02-07 14:50 | NUR ---
Discharge to home with copy of discharge instructions, and medication reconciliation and personal belongings. Patient and family verbalize understanding of the teaching. Thomas Painter RN
== END 2020-02-07 14:30 | disposition home or self-care (01) | DRG 282 ==
LOC: SED 14:41 → SIC 16:38 → SMU 02-02 17:07
PROVIDERS: ADMIT Family Medicine; ATTEND Family Medicine
DX: K85.90 Acute pancreatitis without necrosis or infection, unspecified (principal); N17.0 Acute kidney failure with tubular necrosis; R65.11 Systemic inflammatory response syndrome (SIRS) of non-infectious origin with acute organ dysfunction; E11.10 Type 2 diabetes mellitus with ketoacidosis without coma; E86.0 Dehydration; F32.9 Major depressive disorder, single episode, unspecified; E11.65 Type 2 diabetes mellitus with hyperglycemia; E87.2 Acidosis; Z79.4 Long term (current) use of insulin
CPT/HCPCS: 36415; 36600; 71045; 76700-TC; 80048; 80053; 80061; 80076; 80307; 81000-TC; 82009-TC; 82150-TC; 82550-TC; 82803-TC; 82947-TC; 82962; 83036; 83605; 83690-TC; 83735-TC; 84100-TC; 84132-TC; 84439; 84443-TC; 84479; 84484; 85025; 85610-TC; 85730-TC; 87040-TC; 87081; 93005; 96361; 96365; 96375; 99285; C9113; G0480; G0481; G0482; J0696; J1815; J3480; J7030; J7060